=== PATIENT | male | born 1955 | race Caucasian/White ===

== ENCOUNTER 2016-12-02 06:26 | Inpatient (IN) | payer OTHER ==
[2016-12-02] VITALS (13 sets, daily range): BP systolic 105–142; BP diastolic 56–78; PULSE 82–96; RESP 13–20; O2SAT 95–99
[~2016-12-02] VITALS: Ht 175.3 cm; Wt 105.0 kg
[~2016-12-02 06:26] MED LIST: CeFAZolin Inj 2,000 MG in Dextrose 5%-Pha MIX 50 ML IV SCH; ETOD400T PO; GLIP10TA10 PO; INSU100I13 SUBQ; Lactated Ringer's 1,000 ML IV SCH; METF1000 PO; SIMV20TA4 PO
[2016-12-02] MEDS ORDERED: Lactated Ringer's 1,000 ML IV ONE (07:10)
[2016-12-02] MEDS ORDERED: Talc, Intrapleural 4 Gm Powder PLEURAL ONE (08:00)
--- NOTE | 2016-12-02 08:40 | PCM.HPANE ---
Patient Data Date of Service: December 02, 2016 Surgeon Admitting Provider: Attending Provider:Amy Napier MD Primary Care Physician:Elias Sharma DO Other Provider:Maximilian Mims Anesthesia Reason for Visit Right Pleural Effusion Ht/WT & BMI Height (Feet): 5 Height (Inches): 9 Weight (Kilograms): 103 Body Mass Index 33.00 Allergies Coded Allergies: No Known Allergies (Verified , 12/01/16) Past Anesthesia History Anesthesia History: Denies:: Anesthesia Reactions, Malignant Hyperthermia Diabetes History Hx Diabetes?: Yes (TYPE II) Type of Diabetes: Type II Glycemic Control: Insulin & Oral Medication Current Bedside Blood Glucose: 148 MRSA MRSA: No Medications Hypertension Medication: No Home Meds Incl Beta Vincenzo: No Reported Medications Simvastatin 20 Mg [id number] Mg PO HS Ref 0 12/01/16 Metformin (Glucophage)1,000 Mg Tablet1,000 Mg PO BID Ref 0 12/01/16 Insulin Glargine (Lantus U100 Solostar Insulin Pen)100 Unit/1 Ml Insuln.pen45 Unit SUBQ BID #1 PENINJ Ref 0 12/01/16 Glipizide 10 Mg [id number] Mg PO BID 30 Days 12/01/16 Etodolac 400 Mg Eyzbqy202 Mg PO BID 12/01/16 History History of ENT Problems?: Yes HEENT History: Denies:: Abnormal Airway Cataracts Difficult Intubation Dysphagia Glaucoma Hearing Problem Sinus Problem TMJ Denture Type: Full- Upper Full- Lower Teeth Condition: No Teeth Hx of Heart Problems?: Yes Cardiovascular History: Positive for:: Hypertension (HYPERLIPIDEMIA) Denies:: Heart Murmur Hx of Respiratory Problem?: Yes Respiratory History: Positive for:: Chest Surgery (S/P PLEURX CATH-NOW NON FUNCTIONING WAS DRAINING 2L 2X/WEEK) Cough (INCREASING RT PLEURAL EFFUSION) Dyspnea (INCREASING RASHID/SOB) Denies:: Use of C-PAP Machine Other Resp Pertinent History: HAS BEEN DX W/ NON HODGKINS LYMPHOMA Hx Neurologic Problems?: No Hx of GI Problems?: No Hx of Problems?: Yes HX of Peritoneal Dialysis: No Other Pertinent History: LT KIDNEY MASS SUSPOICIOUS FOR RENAL CELL CA (U/S ORDERED,CT GUIDED BX ORDERED);RETROPERITONEAL LYMPHADENOPATHY SUSPICIOUS FOR EVA METASTASIS Male Hx: Denies:: Prostate Problems Scrotal Mass Testicular Surgery Skin History: Denies:: History Skin Disorders? Pressure Ulcers Hx Musculoskeletal Problems?: Yes Musculoskeletal History: Positive for:: Musculoskeletal Trauma (S/P ANKLE RPR (CALCIFIC TENDONITIS)) Denies:: Back Injury (C/OF LOWER BACK PAIN,LT SHOULDER PAIN & RECENTLY, RT SHOULDER PAIN) Hx of Psycho/Social Problems?: No Hx Surgeries?: Yes (PLEURX CATH INSERTION,ANKLE RPR) Hx Any Other Health Problems?: Yes Other History: Positive for:: Cancer (NON HODGKINS LYMPHOMA) Hospitalization Denies:: Thyroid Disease Hx Diabetes: Yes (TYPE II)Bedside Blood Glucose: 148 Hx Alcohol Use: No (QUIT 1996)Have You Smoked inLast 12 mo: NoApprox How Many Cigarettes/day: 2 PPD X 25YRS Stop/Bang Treated for Sleep Apnea?: No Do You Have a CPAP Machine?: No S-Snoring: Do You Snore Loudly: No T-Tired: feel tired, fatigued: No O-Obsered: Observed not breath: No P-Blood Pressure: treated: Yes B- Body Mass Index > 35 kg/m2: No A- Age over 50: Yes N- Neck Large Circumference: Yes G- Gender Male: Yes JORGE Total Score: 4 JORGE Risk Assessment: High Risk, =/>3 Yes JORGE Category 2: Yes Risk Assessment Category Category 1A: Patient has history of documented sleep apnea, and HAS NOT received any narcotic, sedative or anesthesia administration during this stay. Category 1B: Patient has history of documented sleep apnea, and HAS received any narcotic , sedative or anesthesia administration during this stay Category 2: Patient has SUSPECTED Obstructive Sleep Apnea, and HAS received any narcotic , sedative or anesthesia administration during this stay. Category 3: Patient has SUSPECTED Obstructive Sleep Apnea and HAS NOT received narcotic, sedative or anesthesia administration during this stay. Category 4: Outpatient in Procedural Areas with known sleep apnea or who screen positive for High Risk via the STOP/BANG questionnaire. Exam Exam Vital Signs Vital Signs Date Time Temp Pulse Resp B/P Pulse Ox O2 Delivery O2 Flow Rate FiO2 12/02/16 07:10 36.7 86 17 142/61 96 Room Air General Appearance: Alert, Oriented X3, Cooperative, No Acute Distress HEENT/AIRWAY: MP 1 Lungs: Diminished (on right) Heart: Exam Unremarkable Meds/Labs/Diagnostics Admission Meds Current Medications Lactated Ringer's (Lr) 1,000 ml @ ud STK-MED ONCE IV Last administered on 12/02t 07:10; Start 12/02/16 at 07:10; Stop 12/02/16 at 07:11; Status DC Bedside Blood Glucose: 148 Plan Impression Patient chart reviewed, patient interviewed and anesthestic plan with risks, benefits, and alternatives discussed, and informed consent obtained. NPO per Anesth. Guidelines: Yes ASA Physical Status: ASA2 Mod Systemic Disease Anesthetic Plan: GA (with double lumen tube) Bene/Risks/Altern/Consents: Yes HP Complete Prior to Induction: Yes Jose Luis Tineo MD December 02, 2016 08:40
[2016-12-02] MEDS ORDERED: DOXYCYCLINE PLEURAL ONE (09:30)
[2016-12-02] MEDS ORDERED: CATHETER TIP PLEURAL ONE (09:30)
[2016-12-02] MEDS ORDERED: Lactated Ringer's 1,000 ML IV SCH (10:07)
[2016-12-02] MEDS ORDERED: Lactated Ringer's 500 ML IV PRN (10:07)
[2016-12-02] MEDS ORDERED: Phenylephrine 10,000 mCg/mL Inj IVPUSH PRN (10:10)
[2016-12-02] MEDS ORDERED: fentaNYL-PF 50 mCg/mL 2 mL Inj IVPUSH PRN (10:10)
[2016-12-02] MEDS ORDERED: Dexamethasone 4 mg/mL Inj IVPUSH PRN (10:10)
[2016-12-02] MEDS ORDERED: HYDROmorphone 1 mg/mL Inj IVPUSH PRN (10:10)
[2016-12-02] MEDS ORDERED: Ondansetron 2 mg/mL 2 mL Inj IVPUSH PRN ×2 (10:10→12:55)
[2016-12-02] MEDS ORDERED: Labetalol 5 mg/mL 4 mL Inj IV PRN (10:10)
[2016-12-02] MEDS ORDERED: EPHEDrine Sulfate 50 mg/mL Inj IVPUSH PRN (10:10)
[2016-12-02] MEDS ORDERED: Bupivacaine Liposome 1.3% 20 mL Inj ONE (10:23)
[2016-12-02] MEDS ORDERED: Bupivacaine-MPF 0.5% 30 mL Inj INFILTRATE ONE (10:32)
--- NOTE | 2016-12-02 12:46 | PCM.SURGOP ---
Surgical Operative Report Date of Service: December 02, 2016 Pre Operative Diagnosis Loculated malignant right pleural effusion Post Operative Diagnosis Loculated malignant right pleural effusion Procedure: 1. Right thoracoscopy 2. Right decortication 3. Mechanical pleurodesis 4. Thoracic blocks with liposomal bupivacaine 5. Removal of Pleurx catheter Surgeon and Re Dye Hand: Surgeon: Amy Napier MD Assistants: Juan Romano PA-C; Kimmy Stafford MS3 Re Dye Hand was necessary for dissection and retraction Indication for Procedure This is a 61-year-old man who presented with a right pleural effusion nearly 3 months ago. Thoracentesis was performed and revealed lymphoma. He underwent further workup and was found to have a left renal mass concerning for renal cell carcinoma. He required additional thoracenteses, and therefore a Pleurx catheter was placed. This worked well for several weeks, however, it became clogged and his pleural effusion reaccumulated it appeared to have a loculated appearance. He was pretty further workup of his renal cell cancer and may require nephrectomy prior to receiving chemotherapy for his lymphoma. Additionally, reaccumulation of his pleural effusion was associated with shortness of breath. For this reason, thoracoscopy with decortication and pleurodesis was scheduled to assist with reexpansion of his lung. Findings: Severe loculation with gelatinous material surrounding the lateral and posterior aspects of the right thoracic cavity. No sign of purulent fluid. Procedure Details The patient was brought to the operating room and placed in supine position. A double-lumen endotracheal tube was placed. He was repositioned in left lateral decubitus position with a beanbag and all pressure points appropriately padded. Antibiotics were infused. SCDs and a warming blanket were placed. The operative field was prepped and draped in sterile fashion. A pause was performed to confirm the correct patient, procedure, site, and side. Access to the chest was performed through an 11 mm incision at the level of the inframammary crease at the anterior axillary line. There is hip was made to insert a 2.5 mm port. However, there is little space between the ribs and the patient's obesity prevented a short port to be used, so a long 5 mm port was used. This permitted access to the thoracic cavity, although visualization was severely limited by the gelatinous pleural fluid. Some of this could be suctioned out through the port , and gentle dissection with a 0 scope was performed such that a second port to be placed. It was then used to gently dissect the lung off the thoracic wall for the third port. The second port was at approximately the 9th interspace at the anterior axillary line, and the 3rd was the most posterior at approximately the 9th intercostal space. The fluid within the thoracic cavity was sent for cytology and culture. Gentle decortication was performed of the chest cavity and pulmonary surface. There were multiple isolated areas of loculation, and the fluid around it was thick with the consistency of gelatin. A large suction device had to be used to remove some of the fluid, and graspers were used to remove the thickened inflammatory tissue on the chest wall and lung surface. Once adequate decortication had been performed and all of the pleural fluid was removed, copious irrigation with suction was performed, followed by mechanical pleurodesis. Due to a national shortage of talc, the only chemical pleurodesis agent available was in a slurry which would require clamping of the chest tube, and based on the significant inflammation that was created by the decortication and mechanical pleurodesis, this was deferred for a later time if necessary such that the chest tube could remain on suction as the patient exited the operating room. Local anesthetic of 0.5% Marcaine was introduced into the subcutaneous tissues and between the rib spaces. Then, liposomal bupivacaine blocks were performed just inferior to the ribs at, below, and above each port site. Two chest tubes were then placed. The first was at the mid axillary line and in the most superior of the port sites; a 36 Italian was chosen because of the thickness of the fluid that had been evacuated. It was advanced to the apex. The second chest tube was at the anterior axillary line and inferior to the first. It was 36 Italian, bent, and placed at the base. The chest tube was stitched into place using a 2-0 Ethibond and a 2- 0 nylon. An additional 2-0 nylon stitches were used at the chest tube sites for reapproximation of the skin around the chest tubes. A subcuticular 4-0 Monocryl stitch was used for the most posterior port site. Sterile dressings were then placed and the patient was awakened and taken to the postoperative care unit in good condition. Complications There were no periprocedural complications identified. Surgical Specimen Removed: Yes Specimen sent to Pathology: Yes Surgical Specimen description: R pleural fluid sent for cytology and culture. Anesthetic Plan: GA (with double lumen tube) Grafts, Implants: Other (Chest tubes x 2) Output, Estimated Blood Loss: 20 (ml) Blood Administration during dean: No Amy Napier MD December 02, 2016 12:46
[2016-12-02] MEDS ORDERED: Dextrose 5% 0.45% NaCl 1,000 ML IV PRN (12:49)
[2016-12-02] MEDS ORDERED: Insulin Human REGular Inj 100 UNIT in 0.9% Sodium Chloride-Pha MIX 100 ML IV SCH (12:49)
[2016-12-02] MEDS ORDERED: HYDROmorphone PCA 0.2 mg/mL 30 mL Inj IV PRN (12:55)
[2016-12-02] MEDS ORDERED: MetoCLOpramide 5 mg/mL 2 mL Inj IVPUSH PRN (12:55)
[2016-12-02] MEDS ORDERED: Rocuronium 10 mg/mL 5 mL Inj ONE (13:04)
[2016-12-02] MEDS ORDERED: Propofol 10,000 mCg/mL 20 mL Inj ONE (13:04)
[2016-12-02] MEDS ORDERED: EPHEDrine/NS 5 mg/mL 5 mL Syringe ONE (13:04)
[2016-12-02] MEDS ORDERED: Dexamethasone 4 mg/mL Inj ONE (13:04)
[2016-12-02] MEDS ORDERED: Ondansetron 2 mg/mL 2 mL Inj ONE (13:04)
[2016-12-02] MEDS ORDERED: fentaNYL-PF 50 mCg/mL 2 mL Inj ONE (13:04)
[2016-12-02] MEDS ORDERED: Succinylcholine Chloride 20 mg/mL 5 mL Inj ONE (13:04)
[2016-12-02] MEDS ORDERED: Phenylephrine/NS 100 mCg/mL 10 mL Syringe IVPUSH ONE (13:04)
--- NOTE | 2016-12-02 13:19 | DRSVH ---
PROCEDURE: X-RAY CHEST ONE VIEW, PORTABLE ([id number]) INDICATIONS: chest tubes TECHNIQUE: One view of the chest was acquired. COMPARISON: [facility], CR, XR CHEST 2VW, 11/25/2016, 13:24. [facility], CR , XR CHEST 2VW, 09/17/2016, 12:45. FINDINGS: Surgical changes and devices: Right lateral pleural drains placed, evacuating a large right lateral p leural effusion. Lungs and pleura: No significant remaining pleural effusion, but there is a small right lateral pneu mothorax along the course of the pleural drains. Lungs are clear. Mediastinum: Mediastinal contours appear normal. Heart size is normal. Bones and chest wall: No suspicious bony lesions. Overlying soft tissues appear unremarkable. IMPRESSION: Successful evacuation of the large majority of the right pleural effusion, which appears to have been loculated. This has been accomplished by placement of 2 right lateral pleural drains. A small right lateral pneumothorax is present within the pleural space immediately adjacent to the pl eural drains. Dictated by: Jose Miguel Weinstein M.D. on 12/02/2016 at 13:16 Approved by: Jose Miguel Weinstein M.D. on 12/02/2016 at 13:17
--- NOTE | 2016-12-02 13:24 | PCM.ANEP1 ---
Post Anesthesia PACU Phase 1 Assessment Vital Signs Vital Signs Date Time Temp Pulse Resp B/P Pulse Ox O2 Delivery O2 Flow Rate FiO2 12/02/16 13:15 84 15 118/72 97 Nasal Cannula 3 12/02/16 13:00 85 16 130/62 97 Nasal Cannula 3 12/02/16 12:55 82 14 110/67 95 Nasal Cannula 3 12/02/16 12:50 85 17 113/56 96 Nasal Cannula 3 12/02/16 12:45 36.5 87 15 123/67 95 Nasal Cannula 3 12/02/16 07:10 36.7 86 17 142/61 96 Room Air Anesthetic Administered: GA Level of Alertness: Sleepy, easy to arouse YI's with Equal Strength: Yes Pain: No Nausea or Vomiting: No CV Function & Hydration Stable: Yes Airway Device: Oxygen Delivery: Nasal Cannula Lungs: Clear to Auscultation, Diminished (on right) Dermatome Level: Full Sensation PACU Phase 2 Assessment Complications: No Follow up Care: No Patient Instructions Provided: Yes Jose Luis Tineo MD December 02, 2016 13:24
[2016-12-02 14:00] LABS: BASOPHILS % (AUTO) 0.1 % (0-3); EOSINOPHILS % (AUTO) 0.4 % (0-5); MONOCYTES % (AUTO) 4.8 % (4-12); Mean Corpuscular Hemoglobin 28.2 pg (27.0-35.0); Mean Corpuscular Volume 85.5 fL (81-100); NEUTROPHILS % (AUTO) 91.8 % (40-74); Platelet Count 224 bil/L (150-400)
[2016-12-02] MEDS: Dextrose 5% Lactated Ringer's 1,000 ML IV SCH (14:21)
[2016-12-02] MEDS: Acetaminophen IV 1,000 MG in IV Premix 1 EACH IV SCH ×2 (15:45→21:28)
[2016-12-02] MEDS: Insulin Human REGular Inj 100 UNIT in 0.9% Sodium Chloride-Pha MIX 100 ML IV SCH (21:27)
[2016-12-03] VITALS (8 sets, daily range): BP systolic 90–133; BP diastolic 54–75; PULSE 87–94; RESP 14–18; O2SAT 95–97
[2016-12-03] MEDS: Acetaminophen IV 1,000 MG in IV Premix 1 EACH IV SCH ×3 (03:12→16:00)
[2016-12-03] MEDS: Dextrose 5% Lactated Ringer's 1,000 ML IV SCH ×2 (03:12→16:04)
[2016-12-03 06:37] LABS: BASOPHILS % (AUTO) 0.1 % (0-3); EOSINOPHILS % (AUTO) 0.3 % (0-5); MONOCYTES % (AUTO) 13.8 % (4-12); Mean Corpuscular Hemoglobin 27.9 pg (27.0-35.0); NEUTROPHILS % (AUTO) 82.3 % (40-74); Platelet Count 269 bil/L (150-400)
--- NOTE | 2016-12-03 08:23 | DRSVH ---
PROCEDURE: X-RAY CHEST ONE VIEW, PORTABLE ([id number]) INDICATIONS: chest tubes TECHNIQUE: One view of the chest was acquired. COMPARISON: [facility], NM, PET NECK TO MID THIGH STD, 11/10/2016, 10:16. [facility], CR, XR CHEST 2VW, 11/25/2016, 13:24. [facility], CR, XR CHEST 1V PORTABLE, 09/21/2016, 13:04. [facility], CR, XR CHEST 1VW (PORTABLE), 12/02/2016, 12:44. FINDINGS: Surgical changes and devices: Stable positioning of right pleural drains. Lungs and pleura: The small midlung and right basilar pneumothorax not significant changed. Adjacent airspace opacity within the midright lung and right lung base also is no significant change. Left l liliana remains clear. Mediastinum: Mediastinal contours appear normal. Heart size is normal. Bones and chest wall: No suspicious bony lesions. Overlying soft tissues appear unremarkable. IMPRESSION: 1. Stable positioning of right pleural drains and no significant change in small right pneumothorax. 2. Midright lung and basilar adjacent lung airspace opacity suggesting atelectasis and/or pneumonia. Neoplasm cannot entirely be excluded. Continued radiographic surveillance to resolution is recommen ded. Dictated by: Goyo BOLDEN Interpreted: Chavez Leung MD on 12/03/2016 at 8:19 Transcribed by: ZACHARY on 12/03/2016 at 8:23 Approved by: Chavez Leung M.D. on 12/03/2016 at 12:18
[2016-12-03] MEDS: Polyethylene Glycol (PEG) 17 Gm Powder PO PRN (13:09)
--- NOTE | 2016-12-03 13:42 | DRSVH ---
PROCEDURE: X-RAY CHEST ONE VIEW ([id number]) INDICATIONS: chest tubes to water seal TECHNIQUE: One view of the chest was acquired. COMPARISON: [facility], CR, XR CHEST 1VW (PORTABLE), 12/03/2016, 5:42. FINDINGS: Surgical changes and devices: Stable positioning of right pleural drains. Lungs and pleura: The small midlung and right basilar pneumothorax not significant changed. Adjacent airspace opacity within the midright lung and right lung base also with no significant change. Left lung remains clear. Mediastinum: Mediastinal contours appear normal. Heart size is normal. Bones and chest wall: No suspicious bony lesions. Overlying soft tissues appear unremarkable. IMPRESSION: 1. Stable position of right pleural drain no significant change in small right pneumothorax. 2. Mid right lung and basilar airspace opacity unchanged. Continued radiographic surveillance is rec ommended. Dictated by: Goyo BOLDEN Interpreted: Chavez Leung MD on 12/03/2016 at 13:41 Transcribed by: ZACHARY on 12/03/2016 at 13:42 Approved by: Chavez Leung M.D. on 12/03/2016 at 15:42
[2016-12-03] MEDS: Insulin Human REGular Inj 100 UNIT in 0.9% Sodium Chloride-Pha MIX 100 ML IV SCH (15:08)
--- NOTE | 2016-12-03 17:29 | PROG NOTE ---
[address] [address] PROGRESS NOTE PATIENT: PAMELA NELSON : 1955 MR#: [id number] ADMIT: 12/02/2016 JOB ID: [id number] DATE: 12/03/2016 SUBJECTIVE: This is a 61-year-old man with a loculated pleural effusion who underwent thoracoscopic washout, decortication, and pleurodesis of the right chest yesterday. He has been very stable since surgery. Vital signs are normal. Chest tube #1 is basilar, vent, has no air leak, and put out 640 mL of serosanguineous fluid. Chest tube #2 is apical and posterior, has no air leak, and had 280 mL of serosanguineous fluid. He is on an insulin drip due to uncontrolled diabetes and blood sugars range from 80-249 overnight. A chest x-ray was performed today, and his right lower lobe is not yet well expanded, but the pleural effusion appears significantly improved compared with preoperative imaging. OBJECTIVE: Temperature 36.9, heart rate 87, blood pressure 90/54, respiratory rate of 18, saturation 96% on room air. General: Awake, alert, no acute distress. Chest: Lungs are clear bilaterally at the apices. Chest tubes are intact, not kinked and functioning. There is no air leak. Serosanguineous output is noted in the Pleur-Evac of each tube. LABS: White blood cell count of 13.3, hematocrit 30.2, platelets 269. Basic metabolic panel is within normal limits. ASSESSMENT: A 61-year-old man status post VATS with decortication and pleurodesis yesterday for loculated malignant pleural effusion refractory to Pleur-X catheter drainage. PLAN: Water-seal chest tube today and repeat chest x-ray at 12:30. Likely removal of at least one of his tubes tomorrow. He has been pending left kidney biopsy for renal cell carcinoma as an outpatient. This will be ordered as an inpatient to expedite treatment of his probable malignancies.
[2016-12-04] VITALS (8 sets, daily range): BP systolic 94–158; BP diastolic 56–88; PULSE 84–94; RESP 14–20; O2SAT 96–98
[2016-12-04] MEDS: Dextrose 5% Lactated Ringer's 1,000 ML IV SCH ×2 (02:22→03:27)
[2016-12-04 06:12] LABS: Mean Corpuscular Hemoglobin 28.3 pg (27.0-35.0); Mean Corpuscular Volume 87.2 fL (81-100)
[2016-12-04 06:25] LABS: INR 1.02 ratio
[2016-12-04] MEDS ORDERED: Insulin GLARgine 100 Unit/mL Syringe SUBQ SCH ×2 (08:35→21:00)
--- NOTE | 2016-12-04 10:03 | PCM.PROC ---
Procedure Note Date of Service: Dec 04, 2016 Pre Procedure Diagnosis: Right pleural effusion (Loculated malignant right pleural effusion), POD#2 status post right thoracoscopy with decortication and pleurodesis Post Procedure Diagnosis: same Procedure: Removal of right apical/posterior chest tube Provider and Tester/Lift Trucker: Maude Kuo PA-C Indication for Procedure: Patient is a 61 yo male who is POD#2 s/p right thoracoscopy, right decortication , mechanical pleurodesis, thoracic blocks with liposomal bupivacaine and removal of Pleurx catheter, he is doing well and after examination today by Dr. Napier, she would like his right apical/posterior chest tube removed (minimal output and no air leak noted on exam). We will keep the anterior chest tube in place. Procedure Details: Dressing from posterior/apical chest tube was removed and nylon suture was cut. While, the patient held an inhalation, the tube was easily removed and the Surgidac suture was tied down and Xeroform/gauze dressing was applied. Patient tolerated the procedure well and there was no air suck with removal. copies to: Amy Napier MD, Erin D [facility] Dec 04, 2016 10:03
--- NOTE | 2016-12-04 12:00 | DRSVH ---
PROCEDURE: X-RAY CHEST ONE VIEW ([id number]) INDICATIONS: CHEST TUBES. TECHNIQUE: One view of the chest was acquired. COMPARISON: [facility], CR, XR CHEST 1VW (PORTABLE), 12/03/2016, 5:42. [facility], CR, XR CHEST 1VW, 12/03/2016, 12:42. FINDINGS: Surgical changes and devices: Stable positioning of right pleural drains. Lungs and pleura: Small midlung and right basilar pneumothorax not significant changed. Adjacent ai rspace opacity within the midright lung and right lung base also with no significant change. Left mare ng remains clear. Mediastinum: Mediastinal contours appear normal. Heart size is normal. Bones and chest wall: No suspicious bony lesions. Overlying soft tissues appear unremarkable. IMPRESSION: 1. Stable position of right pleural drain. No significant change in small right pneumothorax. 2. Mid right lung and basilar airspace opacity unchanged. Continued radiographic surveillance is recommended. Dictated by: Goyo Alford [facility] Interpreted: Jose Miguel Weinstein MD on 12/04/2016 at 10:17 Transcribed by: BERENICE on 12/04/2016 at 15:00 Approved by: Jose Miguel Weinstein M.D. on 12/04/2016 at 14:10
--- NOTE | 2016-12-04 13:13 | PCM.PNSURG ---
Subjective Visit Information: Reason for Visit Right Pleural Effusion Surgery/Surgery Date Post-Op Day # Date of Admission: December 02, 2016 at 13:03 Hospital Day # Subjective: Stable overnight. Lantus not given by night RN despite order in paper chart. Blood glucose 104-335 in the past 24h. Chest tube #1--inferior 280 mL serosanguinous, trace air leak (yesterday 640 out ). Chest tube #2--superior 120mL serosanguinous fluid, no air leak (yesterday 280 out). CXR is stable, water seal performed yesterday. Objective Vital Sign- Last 8 Hours Date Time Temp Pulse Resp B/P Pulse Ox O2 Delivery O2 Flow Rate FiO2 12/04/16 11:42 14 96 12/04/16 10:33 36.6 94 20 158/88 98 Room Air 12/04/16 08:42 Supplement Oxygen 12/04/16 08:42 16 96 12/04/16 06:08 14 96 12/04/16 05:18 36.7 87 18 144/81 97 Room Air Intake and Output- Last 8 Hour 12/04/16 Cumulative From/Thru 07:00 12/01/16 12:26 - 12/04/16 06:21 Intake Total 1866 ml 7502 ml Output Total 1340 ml 3232 ml Balance 526 ml 4270 ml Intake Oral 800 ml 2450 ml IV Total 1066 ml 5052 ml Output Urine Total 1180 ml 2050 ml Chest Tube Drainage Total 160 ml 1142 ml Estimated Blood Loss 40 ml # Bowel Movements 0 0 General: Alert, Oriented X3, Cooperative Chest: Breathing easily on room air. Chest tubes not kinked, adequately draining, dressings intact. Result Diagram: 12/04/16 0525 12/03/16 0535 Assessment & Plan Impression POD2 VATS/decortication/pleurodesis. Known baseline poor blood glucose control based on HbA1c 10.6. Problems: Plan Diabetic diet. Discontinue chest tube #2 (superior exit site) given low output. Lantus 45U x1 this am. Continue insulin gtt while this takes effect as he will continue to require intensive monitoring. Biopsy of L kidney has been arranged for Wednesday. Amy Napier MD Dec 04, 2016 13:13
--- NOTE | 2016-12-04 13:54 | PATH ---
SURGICAL PATHOLOGY Attending Physician:Amy Napier MD CASE STATUS: Signed Out PATIENT NAME: Ar Webb PID: [id number] : 1955 DATE COLLECTED:12/02/2016 00:00 SPECIMEN: Right Pleural Effusion CLINICAL HISTORY: Right Pleural Effusion ICD-10 code not given FINAL DIAGNOSIS: RIGHT PLEURAL FLUID CYTOLOGY SPECIMEN: NEGATIVE FOR MALIGNANT CELLS. CELLS PRESENT INCLUDE BENIGN MESOTHELIAL CELLS AND LYMPHOCYTES. [id number] GROSS DESCRIPTION: Received fresh on 12/03/2016 is approximately 20 cc of cloudy pink fluid. Prepared are one cell block, one ThinPrep and one Cytospin slides. Vo ICD-9 CODES: CPT CODES: 1: 78228, 14540, 95408 Electronically Signed Out Garth Macedo MD [facility] Pathology [facility] [address], [place] [address] Technical component performed at [facility], [facility] [address], [place], [address]
[2016-12-04] MEDS ORDERED: Insulin GLARgine 100 Unit/mL Syringe SUBQ ONE (14:06)
[2016-12-04] MEDS: Insulin Human REGular Inj 100 UNIT in 0.9% Sodium Chloride-Pha MIX 100 ML IV SCH (17:33)
--- NOTE | 2016-12-04 17:37 | PCM.DISURG ---
Surgical Discharge Instruction Date of Service Dec 04, 2016 Dates of Hospitalization Date of Hospital Admission December 02, 2016 at 13:03 Providers Admitting Physician: Amy Napier MD Primary Care Physician: Elias Sharma DO Attending Physician: Amy Napier MD Discharge Diagnosis Post Operative diagnosis Loculated malignant right pleural effusion Diet Discharge Diet: No restrictions Activity Discharge Activity-General: No restrictions Dressing and Incisional Care Dressing Care: Allow Steri Stripes to fall off, Remove outer dressing after 24 hrs Hygiene: May shower Additional Instructions Discharge Instructions Renal biopsy is scheduled for 11am on WednesdayDecember 07 in [facility] Observ[facility] Unit, [phone]. Please check in at 9 am if you have been discharged by that time. Follow Up Plan Follow Up Plan F/U with Dr. Napier in 1 week with CXR. Amy Napier MD Dec 04, 2016 17:37
[2016-12-04] MEDS: Polyethylene Glycol (PEG) 17 Gm Powder PO PRN (20:27)
[2016-12-05 05:15] VITALS: BP 105/80; PULSE 94; RESP 19; O2SAT 97
[2016-12-05] MEDS: Dextrose 5% Lactated Ringer's 1,000 ML IV SCH (05:15)
[2016-12-05 07:38] VITALS: RESP 16; O2SAT 97
--- NOTE | 2016-12-05 07:38 | PCM.PNSURG ---
Subjective Visit Information: Reason for Visit Right Pleural Effusion Surgery/Surgery Date Post-Op Day # Date of Admission: December 02, 2016 at 13:03 Hospital Day # Subjective: tolerating diet, still on insulin drip and was given 45u yesterday afternoon, blood sugar this am 168 Objective Objective Awake in bed R CT x1 in place --> on water seal, no air leak, 220 cc recorded Vital Sign- Last 8 Hours Date Time Temp Pulse Resp B/P Pulse Ox O2 Delivery O2 Flow Rate FiO2 12/05/16 05:15 36.4 94 19 105/80 97 Room Air Intake and Output- Last 8 Hour 12/05/16 Cumulative From/Thru 07:00 12/01/16 12:26 - 12/05/16 06:31 Intake Total 1436 ml 95575 ml Output Total 1170 ml 4492 ml Balance 266 ml 6166 ml Intake Oral 1436 ml 4644 ml IV Total 6014 ml Output Urine Total 950 ml 3000 ml Chest Tube Drainage Total 220 ml 1452 ml Estimated Blood Loss 40 ml # Voids 2 # Bowel Movements 0 1 Result Diagram: 12/04/16 0525 12/03/16 0535 Assessment & Plan Impression POD #3 s/p R VATS decortication and pleurodesis DM Lymphoma, L kidney mass Problems: Plan Continue blood sugar control Continue R chest tube to water seal Check this am's CXR L kidney biopsy scheduled for Wednesday Jordan Olmedo MD Dec 05, 2016 07:38
[2016-12-05] MEDS ORDERED: Insulin LISPRO Medium-Dose Scale SUBQ PRN (08:10)
[2016-12-05] MEDS ORDERED: Glucose 40% Oral Gel 15 Gm Tube PO PRN (08:30)
[2016-12-05] MEDS ORDERED: Insulin Human NPH 100 Unit/mL Syringe SUBQ ONE (08:30)
[2016-12-05] MEDS ORDERED: Insulin GLARgine 100 Unit/mL Syringe SUBQ SCH ×4 (08:30→20:30)
[2016-12-05] MEDS ORDERED: Dextrose 10% 250 ML IV PRN (08:35)
--- NOTE | 2016-12-05 08:38 | DRSVH ---
PROCEDURE: X-RAY CHEST ONE VIEW ([id number]) INDICATIONS: chest tube TECHNIQUE: One view of the chest was acquired. COMPARISON: [facility], CR, XR CHEST 1VW, 12/04/2016, 7:47. FINDINGS: Surgical changes and devices: Single right-sided pleural drain noted. Second right sided pleural drai n identified in prior study obtained 12/04/16 has been removed. Lungs and pleura: The small loculated right-sided pneumothorax is not significantly changed compared to prior examination. Opacification in the right lung base is stable. Mediastinum: Mediastinal contours appear normal. Heart size is normal. Bones and chest wall: No suspicious bony lesions. Overlying soft tissues appear unremarkable. IMPRESSION: Stable right basilar opacification and small right pneumothorax. Dictated by: Telma Khalil MD, PhD on 12/05/2016 at 8:35 Approved by: Telma Khalil MD, PhD on 12/05/2016 at 8:37
[2016-12-05 13:35] VITALS: BP 144/75; PULSE 94; RESP 18; O2SAT 94
[2016-12-05] MEDS ORDERED: 0.9% Sodium Chloride 250 ML ONE (14:35)
--- NOTE | 2016-12-05 15:07 | PCM.CHPMED ---
Subjective Date of Service: Dec 05, 2016 Primary Physician: Admitting Physician: Amy Napier MD Primary Care Physician: Elias Sharma DO Attending Physician: Amy Napier MD Chief Complaint: Chief Complaint: Hyperglycemia History of Present Illness: This is a 61-year-old man, lymphoma diagnosed in June, uncontrolled type 2diabetes, loculated right pleural effusion admitted to hospital for thoracic surgery on 12/03. Patient underwent thoracoscopic washout, decortication, and pleurodesis of the right chest 12/03. During the post operative course, patient noted to have hyperglycemia, required significant dosage of long-acting initially, 12/04 received lantus 45unit [id number], 12/05 so far lantus 45unit x2, NPH 20unit x1. patient then switched to insulin gtt per surgery team due to hyperglycemia. a1c noted to be 10.6. pt c/o chronic tingling and numbness on his legs, possibly related to diabetic neuropathy. However, denied history of amputation, kidney disease, heart disease, stroke. Currently pt is on D5/LR 80cc/hr but tolerating diet well with good appetite. Patient denied nausea, vomiting, abdominal pain. Patient stated that he uses metformin twice a day, glipizide twice a day, only using Lantus 15 units once a day in the morning. Lantus dose was never above 15unit. pt had intermittent hypoglyemia in the past, not frequently, noted fsg80s. Patient does not do home glucose monitoring. pt is scheduled to have kidney biopsy to confirm this is lymphoma or not. never on chemo or Radiation. follow up PCP, oncology. Pertinent positives as noted in history of present illness. All other systems were reviewed and are negative Past medical history As described above Past surgical history Minor foot surgery No known allergies to drugs Family medical history, noncontributory Home medication Glipizide 10mg bid metformin 1g bid Lantus 15 units daily simvastatin 20mg qhs Etodolac 400mg bid PMH Bedside Blood Glucose: 104 Allergies: Coded Allergies: No Known Allergies (Verified , 12/01/16) Social History Hx Alcohol Use: No (QUIT 1996) Exam Vital Signs Vital Sign - Last Date Time Temp Pulse Resp B/P Pulse Ox O2 Delivery O2 Flow Rate FiO2 12/05/16 13:35 36.7 94 18 144/75 94 Room Air 6/1/17 09:26 2.00 Intake and Output 12/04/16 12/04/16 12/05/16 Cumulative From/Thru 15:00 23:00 07:00 12/01/16 12:26 - 12/05/16 06:31 Intake Total 1720 ml 1436 ml 87673 ml Output Total 90 ml 1170 ml 4492 ml Balance 1630 ml 266 ml 6166 ml Intake Oral 758 ml 1436 ml 4644 ml IV Total 962 ml 6014 ml Output Urine Total 950 ml 3000 ml Chest Tube Drainage Total 90 ml 220 ml 1452 ml Estimated Blood Loss 40 ml # Voids 2 2 # Bowel Movements 1 0 1 Additional Information: NAD, comfortably laying down on the bed no JVD, MMM, no LAD RRR, nl s1, s2 no mrg CTAB, no w,c, Rt side chest- s/p thoracostomy tube S,ND,NT,normoactive BS+ warm, no edema, pulses 2/2 Lab and Diagnostics Result Diagram: 12/04/16 0525 12/03/16 0535 Assessment & Plan Assessment This is a 61-year-old man, lymphoma diagnosed in June, uncontrolled type 2diabetes, loculated right pleural effusion admitted to hospital for thoracic surgery on 12/03. hyperglycemia, developed post operatively, however given patient's A1c 10.6 = average glc>240s. patient required more insulins post operatively, likely due to stress reaction. No symptoms and signs of DKA/HHS observed. -will send CMP to see patient has anion gap to suggest DKA -will continue insulin gtt until 8:30pm tonight, switch to 55units lantus, q12h -will start lispro sliding scale high correctional, will add baseline lispro as well if remains uncontrolled -target glucose for inpatient -given normal renal function, out of acute post-op course, will resume metformin tonight, hold off glipizide -stop D5/LR as pt is tolerating diet, hydrating well -continue diabetic diet -counseled on importance of glucose control, patient needs closely follow up with PCP on discharge, possibly referral to endocrine clinic. Thank you for consult, please feel free to contact for questions, concerns. Hospitalist service will continue to follow while in house Problems: VTE Mechanical Devices: Intermittant Pneumatic CD Time spent 65min Beatrice Sylvester MD Dec 05, 2016 15:07
[2016-12-05 17:42] VITALS: RESP 18; O2SAT 98
[2016-12-05 19:35] VITALS: BP 157/81; PULSE 94; RESP 18; O2SAT 96
[2016-12-05] MEDS: Insulin GLARgine 100 Unit/mL Syringe SUBQ SCH (21:28)
[2016-12-05] MEDS ORDERED: Insulin LISPRO 300 Unit/3 mL Inj SUBQ SCH (22:00)
[2016-12-06 05:28] VITALS: BP 148/85; PULSE 90; RESP 18; O2SAT 96
[2016-12-06 05:59] VITALS: RESP 18; O2SAT 94
[2016-12-06] MEDS ORDERED: Glucose 40% Oral Gel 15 Gm Tube PO PRN (07:15)
--- NOTE | 2016-12-06 07:29 | PCM.PNSURG ---
Subjective Visit Information: Reason for Visit Right Pleural Effusion Surgery/Surgery Date Post-Op Day # Date of Admission: December 02, 2016 at 13:03 Hospital Day # Subjective: no events yesterday, got hospitalist involved for his blood sugar control, now he's off of insulin drip, blood sugar 154 this AM Objective Objective Awake in bed, still with CLOCK SMITH R chest tube -- no air leak, 150 cc output since yesterday AM Vital Sign- Last 8 Hours Date Time Temp Pulse Resp B/P Pulse Ox O2 Delivery O2 Flow Rate FiO2 12/06/16 05:59 18 94 12/06/16 05:28 36.8 90 18 148/85 96 Room Air Intake and Output- Last 8 Hour 12/06/16 Cumulative From/Thru 07:00 12/01/16 12:26 - 12/06/16 05:59 Intake Total 1342 ml 78797 ml Output Total 1100 ml 5592 ml Balance 242 ml 9091 ml Intake Oral 1200 ml 6719 ml IV Total 142 ml 7964 ml Output Urine Total 950 ml 3950 ml Chest Tube Drainage Total 150 ml 1602 ml Estimated Blood Loss 40 ml # Voids 6 # Bowel Movements 0 1 Result Diagram: 12/04/16 0525 12/06/16 0525 Assessment & Plan Impression s/p R VATS decortication and pleurodesis L kidney mass DM Problems: Plan Remove chest tube today (done) D/c CLOCK SMITH and switch to po pain meds as needed Possible d/c home later today L kidney biopsy scheduled for tomorrow Jordan Olmedo MD Dec 06, 2016 07:29
[2016-12-06] MEDS: HYDROcodone-APAP 5-325 mg Tablet PO PRN ×2 (07:45→14:05)
[2016-12-06] MEDS: Insulin LISPRO 300 Unit/3 mL Inj SUBQ SCH ×2 (07:45→11:24)
[2016-12-06] MEDS: Insulin GLARgine 100 Unit/mL Syringe SUBQ SCH (07:46)
--- NOTE | 2016-12-06 07:56 | DRSVH ---
PROCEDURE: X-RAY CHEST ONE VIEW, PORTABLE ([id number]) INDICATIONS: f/u R chest tube TECHNIQUE: One view of the chest was acquired. COMPARISON: [facility], CR, XR CHEST 1VW, 12/05/2016, 6:13. [facility], CR, XR CHEST 1VW, 12/04/2016, 7:47. FINDINGS: Surgical changes and devices: A single right lateral pleural drain remains. Lungs and pleura: No pleural effusions or pneumothorax. Lungs are normal on the left and shows some degree of restriction of aeration on the right with superimposed radiodensity from pleural thickenin g. Mediastinum: Mediastinal contours appear normal. Heart size is normal. Bones and chest wall: No suspicious bony lesions. Overlying soft tissues appear unremarkable. IMPRESSION: Pleural thickening on the right stable, normal position of single right pleural drain. Normal left hemithorax. Dictated by: Jose Miguel Weinstein M.D. on 12/06/2016 at 7:53 Approved by: Jose Miguel Weinstein M.D. on 12/06/2016 at 7:55
--- NOTE | 2016-12-06 11:21 | PCM.PNMED ---
Subjective Date of Service Dec 06, 2016 Subjective pt feels well, glc normalized this AM, insulin gtt was off, pt received metformin, [id number] last night Exam Vital Signs Vital Sign - Last Date Time Temp Pulse Resp B/P Pulse Ox O2 Delivery O2 Flow Rate FiO2 12/06/16 05:59 18 94 12/06/16 05:28 36.8 90 148/85 Room Air 12/03/16 09:26 2.00 Intake and Output 12/05/16 12/05/16 12/06/16 Cumulative From/Thru 15:00 23:00 07:00 12/01/16 12:26 - 12/06/16 05:59 Intake Total 2683 ml 1342 ml 18049 ml Output Total 1100 ml 5592 ml Balance 2683 ml 242 ml 9091 ml Intake Oral 875 ml 1200 ml 6719 ml IV Total 1808 ml 142 ml 7964 ml Output Urine Total 950 ml 3950 ml Chest Tube Drainage Total 150 ml 1602 ml Estimated Blood Loss 40 ml # Voids 4 6 # Bowel Movements 0 1 Exam NAD, comfortably laying down on the bed no JVD, MMM, no LAD RRR, nl s1, s2 no mrg CTAB, no w,c S,ND,NT,normoactive BS+ warm, no edema, pulses 2/2 chest tube was removed Lab and Diagnostics Result Diagram: 12/04/1652412/06/16 0525 Assessment & Plan This is a 61-year-old man, lymphoma diagnosed in June, uncontrolled type 2diabetes, loculated right pleural effusion admitted to hospital for thoracic surgery on 12/03. hyperglycemia, developed post operatively, however given patient's A1c 10.6 = average glc>240s. patient required more insulins post operatively, likely due to stress reaction. No symptoms and signs of DKA/HHS observed. CMP showed no AG. -glucose was normalized today, pt is being discharged from surgical stand point. -pt was extensively discussed about importance of glc control to prevent micro/ macrovascular Cx, -pt seemed motivated to try self-titration of insulin, recommended increment of 3unit per week based on target [id number] in the morning -pt will resume all of home OHA, insulin(currently 15unit lantus daily per patient but this was probably not enough given his a1c), patient also can benefit from endocrine eval given uncontrolled DM Hospitalist will sign off, Thank you for consult VTE Mechanical Devices: Intermittant Pneumatic CD Time spent 35min Beatrice Sylvester MD Dec 06, 2016 11:20
[2016-12-06 13:36] VITALS: BP 116/65; PULSE 91; RESP 16; O2SAT 97
[2016-12-06 14:18] LABS: INR 0.99 ratio
--- NOTE | 2016-12-07 11:12 | PCM.DC.SUR ---
Discharge Summary Date of Service: Date of Hospital Admission: December 02, 2016 at 13:03 Date of Operation(s): 12/02/2016 Date of Discharge: 12/06/2016 Diagnosis at Time of Discharge Primary diagnoses: 1. Loculated malignant right pleural effusion 2. Postsurgical trapped lung-- right lower lobe. 3. Diabetes 4. Non-Hodgkin's lymphoma 5. Former cigarette smoker 6. Left renal mass Other chronic conditions: Hyperlipidemia Problems: Operation 1. Right thoracoscopy 2. Right decortication 3. Mechanical pleurodesis 4. Thoracic blocks with liposomal bupivacaine 5. Removal of Pleurx catheter Brief History and Physical: This is a 61-year-old man who presented with a right pleural effusion nearly 3 months ago. Thoracentesis was performed and revealed lymphoma. He underwent further workup and was found to have a left renal mass concerning for renal cell carcinoma. He required additional thoracenteses, and therefore a Pleurx catheter was placed. This worked well for several weeks, however, it became clogged and his pleural effusion reaccumulated it appeared to have a loculated appearance. He was also undergoing further workup of his renal cell cancer and may require nephrectomy prior to receiving chemotherapy for his lymphoma. Additionally, reaccumulation of his pleural effusion was associated with shortness of breath. Consultants: Hospitalist Hospital Course: The patient was admitted and underwent the above-mentioned operations without complication. Postsurgically he had hyperglycemia that was fairly well refractory to insulin drip and Lantus. Hospitalist was consulted. At the time of discharge serum glucose had was better controlled. Postsurgically there was no air leak. Posterior chest tube was removed on the patient's second postsurgical day and the remaining chest tube was able to be removed on the patient's fourth postsurgical day. He was stable for discharge later that day. Pathology: FINAL DIAGNOSIS: RIGHT PLEURAL FLUID CYTOLOGY SPECIMEN: NEGATIVE FOR MALIGNANT CELLS. CELLS PRESENT INCLUDE BENIGN MESOTHELIAL CELLS AND LYMPHOCYTES. Disposition: The patient was discharged home on his fourth postsurgical day following final chest tube removal. At the time of discharge the patient was breathing without difficulty, his surgical wounds were dry and intact, he was tolerating pain on oral analgesic, eating solid foods, and ambulatory without assistance. Follow-up Plan: He will return on 12/07/2016 for scheduled renal biopsy. Etodolac (Etodolac) 400 Mg Tablet 400 MG PO BID (Reported) Glipizide (Glipizide) 10 Mg Tablet 10 MG PO BID (Reported) Insulin Glargine (Lantus U100 Solostar Insulin Pen) 100 Unit/1 Ml Insuln.pen 45 UNIT SUBQ BID (Reported) Metformin (Glucophage) 1,000 Mg Tablet 1,000 MG PO BID (Reported) Simvastatin (Simvastatin) 20 Mg Tablet 20 MG PO HS (Reported) copies to: Angela Pedraza MD; Deangelo Sharma MD, Fred H PA-C Dec 07, 2016 11:12
[2016-12-10] MEDS ORDERED: POLY17PO6 PO (07:39)
[2016-12-10] MEDS ORDERED: GABA-502 PO (07:39)
[2016-12-10] MEDS ORDERED: DOCU-41 PO (07:39)
== END 2016-12-06 15:03 | disposition home or self-care (01) | DRG 821 ==
LOC: SAS 06:26 → OSC 13:03
PROVIDERS: ADMIT Surgery; ATTEND Surgery
PROC: 0B5N4ZZ Destruction of Right Pleura, Percutaneous Endoscopic Approach (ICD-10-PCS; 2016-12-02)
PROC: 3E0T3BZ Introduction of Anesthetic Agent into Peripheral Nerves and Plexi, Percutaneous Approach (ICD-10-PCS; 2016-12-02)
PROC: 0BDN4ZZ Extraction of Right Pleura, Percutaneous Endoscopic Approach (ICD-10-PCS; principal; 2016-12-02 09:30)
DX: C85.90 Non-Hodgkin lymphoma, unspecified, unspecified site (principal); J91.0 Malignant pleural effusion; I10 Essential (primary) hypertension; Z79.4 Long term (current) use of insulin; Z79.84 Long term (current) use of oral hypoglycemic drugs; Z87.891 Personal history of nicotine dependence; N28.89 Other specified disorders of kidney and ureter; E11.65 Type 2 diabetes mellitus with hyperglycemia

== ENCOUNTER 2017-01-25 05:56 | Inpatient (IN) | payer OTHER ==
[2017-01-25] VITALS (17 sets, daily range): BP systolic 113–171; BP diastolic 67–92; PULSE 78–93; RESP 13–20; O2SAT 90–100
[~2017-01-25] VITALS: Ht 175.3 cm; Wt 102.3 kg
[~2017-01-25 05:56] MED LIST changes: -CeFAZolin Inj 2,000 MG in Dextrose 5%-Pha MIX 50 ML IV SCH; +Lactated Ringer's 1,000 ML IV ONE; -Lactated Ringer's 1,000 ML IV SCH; +POLY17PO6 PO; -SIMV20TA4 PO; +simvastatin PO
[2017-01-25] MEDS ORDERED: CeFAZolin 2 Gm/50 mL D5W IV Premix IV ONE (06:00)
[2017-01-25] MEDS ORDERED: SIMV20TA4 PO (06:10)
[2017-01-25] MEDS ORDERED: CeFAZolin Inj 2 gm / 50mL D5W IV ONE (06:13)
[2017-01-25] MEDS ORDERED: Lactated Ringer's 1,000 ML IV ONE ×4 (08:15→11:35)
--- NOTE | 2017-01-25 09:29 | PCM.HPANE ---
Patient Data Surgeon Admitting Provider: Attending Provider:Tiffanie Rouse MD Primary Care Physician:Elias Sharma DO Other Provider:Maximilian Mims Anesthesia Reason for Visit Left Renal Cell Cancer LEFT RENAL CELL CANCER Ht/WT & BMI Height (Feet): 5 Height (Inches): 9 Weight (Kilograms): 101.7 Body Mass Index 33.00 Allergies Coded Allergies: No Known Allergies (Verified , 01/18/17) Past Anesthesia History Anesthesia History: Denies:: Abnormal Airway, Anesthesia Reactions, Difficult Intubation, Fam Anesthesia Reaction, Fam Malignant Hypertherm, Malignant Hyperthermia Diabetes History Hx Diabetes?: Yes Type of Diabetes: Type II Glycemic Control: Insulin & Oral Medication Current Bedside Blood Glucose: 153 MRSA MRSA: No Medications Home Meds Incl Beta Vincenzo: No Reported Medications Simvastatin 20 Mg [id number] Mg PO DAILY #30 01/25/17 Polyethylene Glycol 3350 (Miralax)17 Gm Powd.pack17 Gm PO prn 12/31/16 Metformin (Glucophage)1,000 Mg Tablet1,000 Mg PO BID Ref 0 12/01/16 Insulin Glargine (Lantus U100 Solostar Insulin Pen)100 Unit/1 Ml Insuln.pen15 Unit SUBQ DAILY #1 PENINJ Ref 0 12/01/16 Glipizide 10 Mg [id number] Mg PO BID 30 Days 12/01/16 Etodolac 400 Mg [id number] Mg PO BID 12/01/16 Discontinued Reported Medications [simvastatin] No Conflict Check Po Daily 12/31/16 History History of ENT Problems?: No HEENT History: Positive for:: Cataracts (early stage) Denies:: Abnormal Airway Difficult Intubation Dysphagia Glaucoma Hearing Problem Sinus Problem TMJ Denture Type: Full- Upper Full- Lower Teeth Condition: No Teeth Hx of Heart Problems?: No Cardiovascular History: Positive for:: Hypertension (HYPERLIPIDEMIA) Denies:: AICD Abdominal Aortic Aneurism Atrial Fibrillation Cardiac Surgery Chest Pain Congestive Heart Failure Coronary Artery Disease Edema Heart Murmur Irregular Heartbeat Pacemaker Peripheral Vascular Rheumatic Fever Thrombophlebitis Valvular Heart Disease Hx of Respiratory Problem?: Yes Respiratory History: Positive for:: Dyspnea (on exertion) Denies:: Asthma COPD Chest Surgery Cough Emphysema Hemoptysis Pneumonia Pulmonary Embolism Tuberculosis Use of C-PAP Machine Use of Inhalers / NEBS Hx Neurologic Problems?: No Neurological History: Denies:: CVA Dementia Dizziness Headaches Hx of GI Problems?: No Hx of Problems?: No HX of Peritoneal Dialysis: No Male Hx: Denies:: Prostate Problems Scrotal Mass Testicular Surgery Skin History: Denies:: History Skin Disorders? Pressure Ulcers Hx Musculoskeletal Problems?: Yes Musculoskeletal History: Positive for:: Fibromyalgia Osteoarthritis (Elbow, Shoulder) Denies:: Back Injury Degenerative Joint Joint Replacement Musculoskeletal Trauma Myasthenia Gravis Rheumatoid Arthritis Hx of Psycho/Social Problems?: No Psycho Social History: Denies:: Anxiety Hx Depression Hx Surgeries?: Yes (12/02/16 thorocoscopy with drainage) Hx Any Other Health Problems?: Yes Other History: Positive for:: Cancer (NON HODGKINS LYMPHOMA) Hospitalization Denies:: Endocrine Disease Thyroid Disease History Blood Transfusions: Positive for:: Accept Blood Products? Denies:: Blood Transfuse Reaction Blood Transfusions Hx Diabetes: YesBedside Blood Glucose: 153 Hx Alcohol Use: No (QUIT 1996)Hx Substance Use: No Smoking Status: Former Smoker Have You Smoked inLast 12 mo: No Stop/Bang S-Snoring: Do You Snore Loudly: No T-Tired: feel tired, fatigued: No O-Obsered: Observed not breath: No P-Blood Pressure: treated: No B- Body Mass Index > 35 kg/m2: No A- Age over 50: Yes N- Neck Large Circumference: No G- Gender Male: Yes JORGE Total Score: 2 Risk Assessment Category Category 1A: Patient has history of documented sleep apnea, and HAS NOT received any narcotic, sedative or anesthesia administration during this stay. Category 1B: Patient has history of documented sleep apnea, and HAS received any narcotic , sedative or anesthesia administration during this stay Category 2: Patient has SUSPECTED Obstructive Sleep Apnea, and HAS received any narcotic , sedative or anesthesia administration during this stay. Category 3: Patient has SUSPECTED Obstructive Sleep Apnea and HAS NOT received narcotic, sedative or anesthesia administration during this stay. Category 4: Outpatient in Procedural Areas with known sleep apnea or who screen positive for High Risk via the STOP/BANG questionnaire. Exam Exam Vital Signs Vital Signs Date Time Temp Pulse Resp B/P Pulse Ox O2 Delivery O2 Flow Rate FiO2 01/25/17 06:17 35.5 89 17 151/80 98 Room Air General Appearance: Alert, Oriented X3, Cooperative, No Acute Distress HEENT/AIRWAY: MP 2 Lungs: Clear to Auscultation, Diminished Heart: Exam Unremarkable Meds/Labs/Diagnostics Admission Meds Current Medications Lactated Ringer's (Lr) 1,000 ml @ 120 mls/hr [id number] ONCE IV Last administered on 01/25/17 06:07; Start 01/25/17 at 05:00; Stop 01/25/17 at 13:19 Bedside Blood Glucose: 153 Plan Impression Patient chart reviewed, patient interviewed and anesthestic plan with risks, benefits, and alternatives discussed, and informed consent obtained. NPO per Anesth. Guidelines: Yes ASA Physical Status: ASA3 Severe Disease Anesthetic Support Modalities: Arterial Line Anesthetic Plan: GA, SAB Bene/Risks/Altern/Consents: Yes HP Complete Prior to Induction: Yes Patel Astudillo MD Jan 25, 2017 07:39
[2017-01-25] MEDS ORDERED: Lactated Ringer's 500 ML IV PRN (09:32)
[2017-01-25] MEDS ORDERED: Lactated Ringer's 1,000 ML IV SCH (09:32)
[2017-01-25] MEDS ORDERED: MetoCLOpramide 5 mg/mL 2 mL Inj IVPUSH PRN (09:35)
[2017-01-25] MEDS ORDERED: Dexamethasone 4 mg/mL Inj IVPUSH PRN (09:35)
[2017-01-25] MEDS ORDERED: HYDROmorphone 1 mg/mL Inj IVPUSH PRN ×2 (09:35→12:10)
[2017-01-25] MEDS ORDERED: Phenylephrine 10,000 mCg/mL Inj IVPUSH PRN (09:35)
[2017-01-25] MEDS ORDERED: EPHEDrine Sulfate 50 mg/mL Inj IVPUSH PRN (09:35)
[2017-01-25] MEDS ORDERED: Ondansetron 2 mg/mL 2 mL Inj IVPUSH PRN (09:35)
[2017-01-25] MEDS ORDERED: Polyethylene Glycol (PEG) 17 Gm Powder PO PRN (11:50)
[2017-01-25] MEDS: fentaNYL-PF 50 mCg/mL 2 mL Inj IVPUSH PRN ×2 (12:07→12:18)
--- NOTE | 2017-01-25 12:25 | PCM.ANEP1 ---
Post Anesthesia PACU Phase 1 Assessment Vital Signs Vital Signs Date Time Temp Pulse Resp B/P Pulse Ox O2 Delivery O2 Flow Rate FiO2 01/25/17 11:55 36.7 78 18 171/71 100 Simple Mask 8 100 01/25/17 06:17 35.5 89 17 151/80 98 Room Air Anesthetic Administered: GA Level of Alertness: Sleepy, easy to arouse YI's with Equal Strength: Yes Pain: Yes Nausea or Vomiting: No CV Function & Hydration Stable: Yes Airway Device: Oxygen Delivery: Simple Mask Lungs: Clear to Auscultation, Diminished PACU Phase 2 Assessment Complications: No Patient Instructions Provided: N/A Patel Astudillo MD Jan 25, 2017 12:25
[2017-01-25] MEDS ORDERED: HYDROmorphone 0.5 mg/0.5 mL iSecure Syringe ONE (12:41)
[2017-01-25] MEDS ORDERED: Neostigmine 1 mg/mL 10 mL Inj ONE (13:29)
[2017-01-25] MEDS ORDERED: Phenylephrine/NS 100 mCg/mL 10 mL Syringe IVPUSH ONE (13:29)
[2017-01-25] MEDS ORDERED: Glycopyrrolate 0.2 MG/ML 1mL Inj ONE (13:29)
[2017-01-25] MEDS ORDERED: Morphine PF 1 mg/mL 10 mL Inj ONE (13:29)
[2017-01-25] MEDS ORDERED: Ondansetron 2 mg/mL 2 mL Inj ONE (13:29)
[2017-01-25] MEDS ORDERED: Rocuronium 10 mg/mL 5 mL Inj ONE (13:29)
[2017-01-25] MEDS ORDERED: Propofol 10,000 mCg/mL 20 mL Inj ONE (13:29)
[2017-01-25] MEDS ORDERED: fentaNYL-PF 50 mCg/mL 2 mL Inj ONE (13:29)
[2017-01-25] MEDS: 0.9% Sodium Chloride 1,000 ML IV SCH ×2 (13:59→20:15)
--- NOTE | 2017-01-25 19:11 | OP ---
[address] [address] OPERATIVE REPORT PATIENT: PAMELA NELSON : 1955 MR#: [id number] ADMIT: 01/25/2017 JOB ID: [id number] DATE OF SURGERY: 01/25/2017 PREOPERATIVE DIAGNOSIS(ES): Left renal cell carcinoma. POSTOPERATIVE DIAGNOSIS(ES): Left renal cell carcinoma. PROCEDURE PERFORMED: 1. Left open radical nephrectomy (adrenal sparing) . 2. Retroperitoneal lymph node dissection. Modifier 22 is being requested for the extensive fibrosis along the perinephric tissue planes requiring over 50% longer operative time. SURGEON: Tiffanie Rouse MD. FUEL MANAGER: Lauren Linder PA-C. (Her assistance was required to aid the dissection.) FINDINGS: 1. Fibrosis posteriorly and laterally along the perinephric tissues. There was also some adherence of the colon and mesenteric fat to the anterior aspect of Gerota's. 2. Perihilar lymphadenopathy. ANESTHESIA: 1. General. 2. Duramorph spinal anesthesia. ESTIMATED BLOOD LOSS: 100 mL. DRAINS: Lua catheter to the bladder. SPECIMENS: 1. Left kidney and mass. 2. Left hilar lymph nodes. COMPLICATIONS: None. CONDITION: Stable. INDICATION FOR PROCEDURE: The patient is a 61-year-old man with biopsy-proven left renal cell carcinoma. He underwent biopsy given his new diagnosis of lymphoma. His oncologist had requested lymph node dissection during today's procedure to aid in the diagnosis. DESCRIPTION OF PROCEDURE: After informed consent was obtained, the patient was taken to the operating room. A time-out was performed identifying correct patient, surgical site, and procedure. General anesthesia was smoothly induced. He was placed in the supine position and all pressure points were identified and appropriately padded. A Lua catheter was placed into the patient's bladder and set to dependent drainage. The abdomen and flank were then prepped and draped in the usual sterile fashion. A 4- to 5-inch incision was made two fingerbreadths inferior to the left subcostal margin. The skin was incised with a 10 blade and Bovie electrocautery was used to incise the subcutaneous tissues, fascia, and muscle layers. Intraperitoneal access was gained. The Bookwalter was placed over the patient with care being taken not to directly rest the device on the patient. The white line of Toldt was incised. It was seen here that the colon was fairly adherent to the anterior surface of Gerota's fascia. It was teased away with the use of Bovie electrocautery and blunt dissection. Working posteriorly and superiorly, there was extensive fibrosis. These tissues were severely adherent to the posterior body wall. This extended the length of the procedure over 50% longer than a traditional open radical nephrectomy. Dissection proceeded posteriorly, superiorly, and inferiorly. Down to the inferior cone of Gerota's, there was found the ureter, which was ligated with Hem-o-loks and incised sharply. The adrenal gland was seen in orthotopic position. It was spared and excluded from the specimen. The adrenal gland did not appear grossly involved on the CT scan or visibly intraoperatively. Dissection around the hilum commenced. It was somewhat difficult given the lymphadenopathy there. There was also some fibrosis there as well. The renal vein was seen and tagged with a vessel loop. There was prominent adrenal vein coursing from the superior aspect of the left renal vein. There was some bleeding of this vein. This was treated with surgical clips. The renal artery was seen posterior to the renal vein. This was dissected with a right angle. An Endo-PHILLIP vascular load was used to ligate the hilum. There was excellent hemostasis with the staple load. Then dissection commenced in the superomedial aspect of the kidney. Again, the posterior adhesions were quite problematic and ultimately incised and dissected away. The kidney and mass were then removed and passed off the table to Pathology. There was a prominent basim packet along the IVC, just superior to the take off of the left renal vein. The tissues here was somewhat adherent and matted. Dissection commenced of this basim packet using Bovie and clips. This packet was sent to Pathology as left renal hilar nodes. Warm water irrigation was placed within the renal fossa. There was some ooze along the inferior aspect of the adrenal bed. This was treated with argon beam laser coagulation. FloSeal and Surgicel were placed over it as well in the renal hilum. There appeared to be excellent hemostasis at this point. Intestines were placed in orthotopic position as well as the omentum. The fascia was closed in two layers with a looped 1 PDS. The incision was copiously irrigated with water. 3-0 Vicryls were used to approximate the subcutaneous tissues. The skin was then closed with 4-0 Monocryl in running subcuticular fashion. The wound was then dressed with Dermabond. All instruments, sponge, abd needle counts were correct at the end of procedure. The patient appeared to tolerate the procedure well without apparent complications. He was reversed from general anesthesia and taken to the PACU in good and stable condition. SKYE
--- NOTE | 2017-01-25 19:42 | NUR ---
Post op Pt arrived on bed at 1349 to room 1005. Drowsy, but oriented x 3. Pain 4/10 and declines anything else. 2L NC, IV with surgical tubing infusing. Dressing is duoderm with bio-occlusive over. SCD's in place. Lua patent and draining pale urine. Pt oriented to call light and room. Bed in low, care continues.
--- NOTE | 2017-01-25 19:45 | NUR ---
Pain meds Dilaudid 2mg given, pt having 7/10 pain. Pt feeling woozy and dizzy 30 minutes after given. NOC RN aware. Pt has call light and educated to call if still not feeling well.
[2017-01-25] MEDS: oxyCODONE-Acetamin 5-325 mg Tablet PO PRN (23:11)
[2017-01-26] VITALS (7 sets, daily range): BP systolic 113–138; BP diastolic 65–71; PULSE 88–93; RESP 16–18; O2SAT 92–96
[2017-01-26] MEDS: 0.9% Sodium Chloride 1,000 ML IV SCH ×3 (04:15→22:09)
[2017-01-26] MEDS: oxyCODONE-Acetamin 5-325 mg Tablet PO PRN ×5 (05:25→22:08)
--- NOTE | 2017-01-26 05:47 | NUR ---
Mid Fever Patient spiked a temp of 100.5 and was given Percect for fever and pain. Other VSS and he has had minimal pain during this shift. He stood up once during this shift and the plan is to get him up again also to D/C his catheter per order.
[2017-01-26] MEDS ORDERED: Ondansetron 2 mg/mL 2 mL Inj IVPUSH PRN (08:40)
[2017-01-26] MEDS: Insulin GLARgine 100 Unit/mL Syringe SUBQ SCH (09:24)
[2017-01-26] MEDS: Senna-Docusate 8.6-50 mg Tablet PO SCH (09:28)
[2017-01-26] MEDS ORDERED: Glucose 40% Oral Gel 15 Gm Tube PO SCH (13:00)
[2017-01-26] MEDS ORDERED: Dextrose 10% 250 ML IV PRN (13:00)
[2017-01-26] MEDS ORDERED: Insulin Human REGular 300 Unit/3 mL Inj SUBQ SCH (14:30)
--- NOTE | 2017-01-26 16:03 | NUR ---
Social Work- Brief Note/Multidisciplinary Rounds Data: EMR reviewed. Pt is a 61 year old male admitted for left renal cell cancer per H&P. Nephrology is primary for pt. No social work needs identified and no orders have been received at this time. SW met with pt at bedside regarding discharge plan, SW role explained. Pt alert and oriented x3. Pt resides in [place] in an apartment alone where he is independent at baseline. Pt's designated personal support worker is Jonas Webb, son, . Pt uses no DME at home and drives. Pt has no concerns about Rx. Pt sees MD Becker at [facility] [place]. Pt is unsure of DPOA, thinks he has filled it out and his son is DPOA. SW requested copy for hospital. No discharge needs identified. SW provided discharge plan and phone number on whiteboard. Pt to discharge home with son to transport via POV. SW will continue to follow. Assessment: Pt who is independent at baseline. Plan: No discharge needs identified. Pt to discharge home with son to transport via POV. SW will continue to follow. YULIA Huggins
--- NOTE | 2017-01-26 16:55 | PCM.PNSURG ---
Subjective Date of Service: Jan 26, 2017 Date of Service: Jan 26, 2017 Visit Information: Reason for Visit Left Renal Cell Cancer Surgery/Surgery Date L RADICAL NEPHRECTOMY 01/25/17 Post-Op Day # 1 Date of Admission: Jan 25, 2017 at 13:28 Hospital Day #2 Subjective: Mr. Webb reports pain is well controlled. He was able to tolerate broth and water however had not yet had lunch. He denies any nausea or vomiting. He denies passing any flatus. Catheter was removed this am however pt has not been able to void. He has been using IS owever states this makes him cough and causes incisional pain. Postop General: No Shortness of Breath, No Chest Pain Pain Management: PO, IV Push Objective Vital Sign- Last 8 Hours Date Time Temp Pulse Resp B/P Pulse Ox O2 Delivery O2 Flow Rate FiO2 01/26/17 12:34 37.5 91 18 114/65 92 Room Air 01/26/17 11:08 90 16 92 Room Air Intake and Output- Last 8 Hour 01/26/17 Cumulative From/Thru 07:00 01/18/17 10:32 - 01/26/17 05:30 Intake Total 1600 ml 7334 ml Output Total 900 ml 1650 ml Balance 700 ml 5684 ml Intake Oral 600 ml 600 ml IV Total 1000 ml 6734 ml Output Urine Total 900 ml 1550 ml Estimated Blood Loss 100 ml # Bowel Movements 0 0 General: Alert, Cooperative, No Acute Distress Abdomen: Benign, Soft, Appropriately tender (wound clean/dry/intact) Extremities: Warm Neuro: Cranial Nerves 2-12 nl Catheters: Urethral 2 Way Martinez Result Diagram: 01/26/17 1300 01/26/17 0450 Assessment & Plan Impression POD #1 Left open radical nephrectomy and lymph node dissection Problems: Plan Martinez was removed this morning at 7am, however pt was unable to urinate by 1pm therefore martinez was replaced. Will try again before pt goes home. Continue to advance diet as tolerated. Continue IVF for now BS not well controlled, SSI was started today Encouraged IVF and OOB with assistance. Continue pain management. Recommended administering pain medication prior to ambulation or activity. Lauren Linder PA-C Jan 26, 2017 16:55
[2017-01-26] MEDS: Insulin Human REGular 300 Unit/3 mL Inj SUBQ SCH ×2 (17:56→22:14)
--- NOTE | 2017-01-26 18:15 | NUR ---
Urinary retention- Patient unable to urinate after martinez cath. dc'd earlier this am, after attempting to void several times. Bladder scanned and showed 375cc. #16 martinez placed without difficulty per order, and draining clear yellow urine. IV fluids infusing, and encouraged patient to drink fluids.
--- NOTE | 2017-01-27 02:20 | NUR ---
Pain/activity/constipation When asking Pt about his pain, he is very passive and says "it's there." encouraged him to express his pain and offered pain meds. Pt able to states his pain is a 6 after looking at the pictures of faces. PRN percocet given and on reassess Pt stated he "feels good." Pt c/o constipation and lack of appetite. Refused dinner, refused offer of miralax. Advised I would have AM nurse speak to surgeon regarding MOM to try. He refused offer of prune juice. Pt states he has had along standing problem with constipation. Pt agreed to sit up to EOB and dangle. He eventually stood at side of bed with FWW. He stated it felt good to get up and stretch. I encouraged position changes to aid in passing flatus, but he denied. Care continues
[2017-01-27] MEDS: oxyCODONE-Acetamin 5-325 mg Tablet PO PRN ×5 (04:46→21:59)
[2017-01-27] MEDS: 0.9% Sodium Chloride 1,000 ML IV SCH ×3 (04:46→20:15)
[2017-01-27 05:23] VITALS: BP 127/72; PULSE 93; RESP 18; O2SAT 94
[2017-01-27] MEDS: Senna-Docusate 8.6-50 mg Tablet PO SCH (08:30)
[2017-01-27] MEDS: Insulin Human REGular 300 Unit/3 mL Inj SUBQ SCH ×4 (09:13→22:08)
[2017-01-27] MEDS: Insulin GLARgine 100 Unit/mL Syringe SUBQ SCH (09:14)
--- NOTE | 2017-01-27 09:33 | PCM.PNSURG ---
Subjective Date of Service: Jan 27, 2017 Date of Service: Jan 27, 2017 Visit Information: Reason for Visit Left Renal Cell Cancer Surgery/Surgery Date L RADICAL NEPHRECTOMY 01/25/17 Post-Op Day # 2 Date of Admission: Jan 25, 2017 at 13:28 Hospital Day # 3 Subjective: Mr Webb reports tolerable, controlled pain. He has a little nausea, but he is able to consume some food. He doesn't have much appetite, however. He is ambulatory. He has passed flatus. Catheter was reinserted late yesterday afternoon. Postop General: Other (feels "wiped out") Gastrointestinal: Complains of Nausea Pain Management: PO, IV Push Postop Activity: Ambulating Independently Objective Vital Sign- Last 8 Hours Date Time Temp Pulse Resp B/P Pulse Ox O2 Delivery O2 Flow Rate FiO2 01/27/17 05:23 37.1 93 18 127/72 94 Room Air Intake and Output- Last 8 Hour 01/27/17 Cumulative From/Thru 07:00 01/18/17 10:32 - 01/27/17 05:54 Intake Total 2002 ml 19975 ml Output Total 400 ml 2750 ml Balance 1602 ml 8023 ml Intake Oral 620 ml 1627 ml IV Total 1382 ml 9146 ml Output Urine Total 400 ml 2650 ml Estimated Blood Loss 100 ml # Bowel Movements 0 0 General: Alert, Cooperative, No Acute Distress Lungs: Normal Air Movement Abdomen: Soft, Appropriately tender, Other (incision is c/d/i w/o erythema) Extremities: Warm Neuro: Cranial Nerves 2-12 nl Catheters: Urethral 2 Way Lua Result Diagram: 01/27/17 0446 01/27/17 0446 Assessment & Plan Impression POD#2 RIGHT open radical Nx and LNDx Problems: Plan Ambulate IS Voiding trial We discussed DC planning - I think it's reasonable to DC home today, though I encouraged him to stay tonight if he felt that he needed to - He states he feels "wiped out," which is not unexpected - I understands I will prepare the DC orders today, and while attempting voiding today, he can consider whether to stay another night We reviewed wound care and activity restrictions Tiffanie Rouse MD Jan 27, 2017 09:33
--- NOTE | 2017-01-27 09:36 | PCM.DISURG ---
Surgical Discharge Instruction Date of Service Jan 27, 2017 Dates of Hospitalization Date of Hospital Admission Jan 25, 2017 at 13:28 Providers Admitting Physician: Tiffanie Rouse MD Primary Care Physician: Elias Sharma DO Attending Physician: Tiffanie Rouse MD Discharge Diagnosis Discharge Diagnosis LEFT renal cell cancer Post Operative diagnosis Same Diet Discharge Diet: Renal Diet (diabetic) Activity Discharge Activity-General: Balance rest and activity, Activity as pain allows , No lifting >10 pounds for 4-6 weeks, No driving while taking narcotic Dressing and Incisional Care Hygiene: May shower, DO NOT soak incision under water, NO bathtub, hot tub or whirlpool Follow Up Plan Follow Up Plan 2 wks Call your provider for: Fever, Chills, Increasing abdominal pain, Vomiting, Discharge @ incision, pus discharge Tiffanie Rouse MD Jan 27, 2017 09:36
--- NOTE | 2017-01-27 11:06 | NUR ---
Wound Care Nurse Patient seen for incision assessment. Incision on LUQ measures 1 cm L x 17 cm W. The length of 1 cm is noted at L lateral edge where dark red, dried, intact crusting is noted. Otherwise, entire incision is well-approximated. No drainage noted, no maceration, and erythema is as expected. Patient denied tenderness or pain with light palpation which elicited no drainage. Wound was cleansed, periwound swabbed with skin prep, then covered with steri-strips. Wound appears to be healing without significant complication. Linear proximal to distal excoriation-type injury noted on anterior L foot, ankle, and babin, which patient stated he thought he sustained a few weeks ago when foot slid under bed frame. Wound is dry, no drainage, no sign of infection. Patient confirmed LOPS, "sometimes I don't feel much." Patient stated that he was uncomfortable in bed, at first declined assistance with repositioning, and then agreeable to modified side lying with pillow behind R flank. Patient instructed to keep steri-strips clean and dry and allow to fall off on their own. He was instructed to report changes to MD and complete follow up appointments as scheduled.
--- NOTE | 2017-01-27 11:58 | NUR ---
Social Work- Discharge/Multidisciplinary Rounds Data: EMR reviewed. Pt is on day 2 of hospitalization for nephrectomy. Per supervisor propellant charge loading in multidisciplinary rounds, pt to discharge today. Discharge orders are active. No social work needs identified. SW met with pt at bedside regarding discharge. Pt is agreeable to discharge and states that his son will pick him up today, transport via POV. Pt has been ambulatory. No discharge needs identified. Assessment: Pt who is independent at baseline. Plan: Pt to discharge home with his son via POV. No discharge needs identified. SARAH will continue to follow. YULIA Huggins
[2017-01-27 12:42] VITALS: BP 127/66; PULSE 89; RESP 18; O2SAT 95
--- NOTE | 2017-01-27 13:41 | NUR ---
D/C martinez cath/void martinez catheter DC'd at 0930 hrs today. patient unable to void by 1330hrs. bladder scan completed with 229ml total. encouraged PO fluids and continue to monitor.
--- NOTE | 2017-01-27 15:11 | NUR ---
unable to void Lua pulled at 0930hrs. at 1300hrs patient still does not have the urge to void. bladder scan showed 315ml. no obvious bladder distention. encouraged PO fluid intake and reassess.
--- NOTE | 2017-01-27 17:57 | NUR ---
unable to void patient void 25ml, then had a PVR of 417ml. patient report urge to void but unable to stream. mild bladder distention noted on exam. Dr hutchinson notified. received new orders. start flomax 0.4mg PO daily scott dose now. if PVR >600ml reinsert martinez catheter. hold discharge tonight and will reassess in am. orders reread and verified.
[2017-01-27 20:16] VITALS: BP 148/72; PULSE 86; RESP 17; O2SAT 92
[2017-01-28] MEDS: oxyCODONE-Acetamin 5-325 mg Tablet PO PRN ×2 (02:02→16:40)
--- NOTE | 2017-01-28 02:22 | NUR ---
Pain/Cough Patient A&OX3 and pleasant this evening. Presents with a passive demeanor, which makes assessing his pain difficult at times. Complains of a 2-7/10 left incision pain. States pain is tolerable excepts when he coughs, which he has been experiencing more frequently as the night has progressed. His cough is wet and non-productive. 2 tabs of percocet are now being given to try to better manage pain, as only 1 tab was being used previously. Talked to patient about additional pain medication because IV Dilaudid is ordered; States that he did not tolerate the Dilaudid well and that it made him very dizzy and sick. Pillow offered to assist with splinting while coughing. Currently patient is sitting up in chair, which is providing best relief at this time. Will continue to monitor and continue Q1 hour checks.
--- NOTE | 2017-01-28 02:56 | NUR ---
Voiding This evening patient has been able to void multiple times. Has voided 200cc and 100cc in addition to a significant incontinent episode. Bladder scanned at 0250 which showed 417. No discomfort or urge to void noted at this time. Will continue to encourage patient to void, and continue Q1 hour checks.
[2017-01-28] MEDS: 0.9% Sodium Chloride 1,000 ML IV SCH (04:46)
[2017-01-28 05:48] VITALS: BP 134/71; PULSE 89; RESP 17; O2SAT 94
--- NOTE | 2017-01-28 08:38 | PCM.PNSURG ---
Subjective Date of Service: Jan 28, 2017 Date of Service: Jan 28, 2017 Visit Information: Reason for Visit Left Renal Cell Cancer Surgery/Surgery Date L RADICAL NEPHRECTOMY 01/25/17 Post-Op Day # 3 Date of Admission: Jan 25, 2017 at 13:28 Hospital Day # 4 Subjective: Mr Webb is doing well overall--his pain is controlled. He is ambulatory. He was able to urinate on his own yesterday. He is tolerating PO diet. He is passing flatus. Postop General: No Complaints Gastrointestinal: No N/V Pain Management: PO Postop Activity: Ambulating Independently Objective Vital Sign- Last 8 Hours Date Time Temp Pulse Resp B/P Pulse Ox O2 Delivery O2 Flow Rate FiO2 01/28/17 05:48 37.1 89 17 134/71 94 Room Air Intake and Output- Last 8 Hour 01/28/17 Cumulative From/Thru 07:00 01/18/17 10:32 - 01/28/17 05:47 Intake Total 1813 ml 94472 ml Output Total 300 ml 3175 ml Balance 1513 ml 12726 ml Intake Oral 350 ml 2414 ml IV Total 1463 ml 46163 ml Output Urine Total 300 ml 3075 ml Estimated Blood Loss 100 ml # Bowel Movements 0 0 General: Alert, No Acute Distress Lungs: Normal Air Movement Abdomen: Soft, Appropriately tender (wound c/d/i) Extremities: Warm Neuro: Cranial Nerves 2-12 nl Catheters: None Result Diagram: 01/27/17 0446 01/27/17 0446 Assessment & Plan Impression POD# 3 LEFT open radical Nx and LNDx Problems: Plan DC planning today. Tiffanie Rouse MD Jan 28, 2017 08:38
--- NOTE | 2017-01-28 08:43 | PCM.DC.SUR ---
Discharge Summary Date of Service: Jan 28, 2017 Date of Hospital Admission: Jan 25, 2017 at 13:28 Date of Operation(s): 01/25/17 Date of Discharge: 01/28/17 Diagnosis at Time of Discharge LEFT renal cell cancer Problems: Operation LEFT open radical nephrectomy with lymph node dissection Brief History and Physical: Mr Webb is a 61 M with incidentally discovered LEFT renal mass that proved to be renal cell cancer on biopsy. He underwent biopsy given his recent dx of NHL. Consultants: None Hospital Course: He underwent aforementioned procedure 01/25/17 and tolerated it well. His hospital course was relatively uneventful, though he did have the martinez replaced POD#1 for urinary retention. By the night of POD#2 he was able to void spontaneously. Pathology: Pending; though bx was renal cell cancer Disposition: Home Follow-up Plan: 2 wks wound check Etodolac (Etodolac) 400 Mg Tablet 400 MG PO BID (Reported) Glipizide (Glipizide) 10 Mg Tablet 10 MG PO BID (Reported) Insulin Glargine (Lantus U100 Solostar Insulin Pen) 100 Unit/1 Ml Insuln.pen 15 UNIT SUBQ DAILY (Reported) Metformin (Glucophage) 1,000 Mg Tablet 1,000 MG PO BID (Reported) Polyethylene Glycol 3350 (Miralax) 17 Gm Powd.pack 17 GM PO prn (Reported) Simvastatin (Simvastatin) 20 Mg Tablet 20 MG PO DAILY (Reported) Tiffanie Rouse MD Jan 28, 2017 08:43
[2017-01-28] MEDS: Insulin Human REGular 300 Unit/3 mL Inj SUBQ SCH ×2 (09:05→12:06)
[2017-01-28] MEDS: Insulin GLARgine 100 Unit/mL Syringe SUBQ SCH (09:06)
[2017-01-28] MEDS: Senna-Docusate 8.6-50 mg Tablet PO SCH (09:06)
--- NOTE | 2017-01-28 11:14 | NUR ---
Social Work-Multidisciplinary Rounds Data: EMR reviewed. Pt is on day 3 of hospitalization for nephrectomy. Pt discussed in rounds. Pt is likely to discharge today. Pt was supposed to discharge yesterday but could not void. Pt has been voiding successfully. Pt's son will transport him home via POV. No discharge needs identified. Assessment: Pt who is independent at baseline. Plan: Pt has been voiding successfully. Pt's son will transport him home via POV. No discharge needs identified. YULIA uHggins
--- NOTE | 2017-01-28 16:51 | NUR ---
Discharge Home discharge instructions, medication, precautions and follow-up care reviewed with patient and son. all questions answered at that time. patient and son verbalized understanding and agreed with plan of care.
--- NOTE | 2017-02-01 09:15 | PATH ---
SURGICAL PATHOLOGY Attending Physician:Tiffanie Rouse, CASE STATUS: Signed Out PATIENT NAME: Ar Webb PID: [id number] : 1955 DATE COLLECTED:01/25/2017 21:13 SPECIMEN: 1: Kidney, Radical Nephrectomy for Nontumor 2: Lymph Node, Biopsy CLINICAL HISTORY: LEFT RENAL CELL CANCER 1). LEFT KIDNEY AND MASS 2). LEFT RENAL HILAR LYMPH NODE FINAL DIAGNOSIS: 1. Left Kidney and Mass, Radical Nephrectomy: - Clear cell renal cell carcinoma. See summary cancer data below. - Atypical lymphoid infiltrate involving the perinephric fat with focal area suspicious for involvement of renal parenchyma. See comment. 2. Left Renal Hilar Lymph Node, Excision: - One lymph node negative for carcinoma. - Atypical lymphoid infiltrate involving the lymph node, which requires further evaluation for definitive diagnosis. See comment. SUMMARY CANCER DATA: Procedure: Radical nephrectomy: Specimen laterality: Left. Tumor site: Upper pole. Tumor size: 7.0 x 5.6 x 4.5 cm. Tumor focality: Unifocal. Microscopic extent of tumor: Tumor extension into perinephric fat and lies approximately 0.1 cm from Gerota' s fascia Histologic type: Clear cell renal cell carcinoma. Sarcomatoid features: Not identified. Tumor necrosis: Focal areas suspicious for necrosis present. Histologic grade (Kerrie nuclear grade): G3 (see comment). Microscopic tumor extension: Tumor extension into perinephric fat (beyond renal capsule) an lies approximately 0.1 cm from the Gerota' s fascia. Margins: Margins uninvolved by invasive carcinoma. Closest margin: tumor lies approximately 0.1 cm from Gerota' s fascia. Lymphovascular invasion: Not identified. Pathologic staging (pTNM AJCC, 7th Edition, 2010): Primary tumor: pT3a Regional lymph nodes (pN): pN0. Number of lymph nodes submitted: 1 (part 2) Number of lymph nodes examined: 1 (part 2) Number of lymph nodes involved by carcinoma: 0. Distant metastasis: Not applicable. Additional pathologic findings and comment: The patient' s history of low-grade B-cell, non-Hodgkin lymphoma is noted. Atypical lymphoid cells involve the perinephric adipose tissue and the single left renal hilar lymph node, suspicious for involvement by the patient' s known lymphoma. Additional workup to help characterize the atypical lymphoid cells will be performed and the results will be reported as an addendum. For the Kerrie nuclear grade, foci of both Grade 2 and Grade 3 are identified. ICD10: C54.2 NOTE: This case was also reviewed by Dr. Reddy, who agrees with the above interpretation. Salvager sections of the case have also been reviewed by our Hematopathologist, Dr. Lomax who agrees with the interpretation of the atypical lymphoid infiltrate. Due to the interesting nature of the findings, the case will be sent to the [facility] for a second opinion. GROSS DESCRIPTION: The specimens are received in formalin, labeled with the patient's name, and sub labeled as the following: (1) left kidney and mass; (2) left renal hilar lymph node. (1) The specimen consists of a kidney (13.2 x 8.0 x 4.2 cm) with an attached ureter (length-3.5 cm, diameter-0.3 cm), renal artery (length-1.3 cm, diameter-0.5 cm), renal vein (length-1.5 cm, diameter-1.2 cm) and perirenal adipose tissue (up to 4.5 cm in depth). The adrenal gland is absent. The Gerota' s fascia has been inked black. A yellow-orange solid firm well-circumscribed hemorrhagic mass (7.0 x 5.6 x 4.5 cm) involving the superior half is 8.5 cm from the ureteric, 5.3 cm from the arterial, and 5.5 cm from the venous resection margins. The mass does not involve the renal sinus fat, pelvis, vein or artery. The mass involves the perinephric fat and abuts (less than 0.1 cm ) the black inked Gerota' s fascia, bit does not invade it. The remaining renal parenchyma is guerrero with normal architecture. No other nodules, masses or lesions are identified. Section code: (1A) ureteric, renal, venous resection margins; (1B-1I) mass, regional sales representative; (1J) normal renal parenchyma, (1K-1M) additional sections of the mass to Gerota' s fascia, (1N) section of the renal sinus fat. The gross specimen was re-reviewed by Dr. Nichole and additional section submitted (1K-1N). (2) The specimen consists of a lymph node (2.3 x 1.8 x 0.8 cm). Section code: (2A-2B) one lymph node, serially sectioned. Specimen entirely submitted. 01/26/17 ICD-9 CODES: CPT CODES: 1: 65611, 89640, 18619, 31241, 21665, 18859 2: 56764, 86570, 97820, 90387, 99579, 82757, 98315, 59520, 35486, 87569, 38549 Electronically Signed Out Carlos Nichole MD [facility] [address], [place] [address] Technical component performed at [facility], [facility] [address], [place], [address]
== END 2017-01-28 16:46 | disposition home or self-care (01) | DRG 657 ==
LOC: SAS 05:56 → OSC 13:28
PROVIDERS: ADMIT Urology; ATTEND Urology
PROC: 0TN Urinary System, Release (ICD-10-PCS; 2017-01-25)
PROC: 07BD0ZX Excision of Aortic Lymphatic, Open Approach, Diagnostic (ICD-10-PCS; 2017-01-25)
PROC: 0TT10ZZ Resection of Left Kidney, Open Approach (ICD-10-PCS; principal; 2017-01-25 07:15)
DX: C64.2 Malignant neoplasm of left kidney, except renal pelvis (principal); C85.90 Non-Hodgkin lymphoma, unspecified, unspecified site; K66.0 Peritoneal adhesions (postprocedural) (postinfection); I10 Essential (primary) hypertension; E11.9 Type 2 diabetes mellitus without complications; Z79.4 Long term (current) use of insulin; Z79.84 Long term (current) use of oral hypoglycemic drugs